=== PATIENT | male | born 1960 | race Caucasian/White ===

== ENCOUNTER 2017-02-02 13:04 | Observation (INO) ==
[2017-02-02] MEDS ORDERED: DIPHTHERIA/TETANUS ADULT IM ONE (13:27)
[2017-02-02 13:46] LABS: MANUAL DIFF NEEDED? NO
[2017-02-02 13:53] LABS: BASO% 1.2 % (0.0-0.8); EOS# 0.45 X1000 (0.0-0.7); EOS% 4.5 % (0.0-10.0); HEMATOCRIT 42.7 % (42.0-52.0); HEMOGLOBIN 15.1 g/dL (14.0-18.0); IMM GRAN# 0.03 X1000 (0.0-0.04); IMM GRAN% 0.3 % (0.0-0.5); LYMPH# 3.15 X1000 (1.2-3.4); LYMPH% 31.2 % (20.5-51.1); MCH 31.1 PG (27-31); MCHC 35.4 g/dL (33-37); MCV 87.9 FL (81-99); MONO# 0.79 X1000 (0.11-0.59); MONO% 7.8 % (1.7-9.3); MPV 9.8 FL (7.4-10.4); PLT 233 X1000 (130-400); RBC 4.86 XMIL (4.7-6.1)
[2017-02-02 14:20] LABS: AGAP 12; ALBUMIN 4.7 g/dL (3.5-5.0); ALKALINE PHOSPHATASE 82 U/L (32-122); BUN 17 mg/dL (8-22); CALCIUM 9.5 mg/dL (8.8-10.2); CHLORIDE 105 mmol/L (98-107); CK PROFILE 129 U/L (24-204); COSMO 281; GOT 15 U/L (10-34); GPT 18 U/L (10-44); POTASSIUM 3.5 mmol/L (3.5-5.1); SODIUM 140 mmol/L (136-145); TCO2 24 mmol/L (25-35); TOTAL PROTEIN 7.9 g/dL (6.3-8.3)
[2017-02-02 14:21] LABS: INR 0.87 (0.86-1.15); PROTIME 12.5 Seconds (12.1-15.5)
[2017-02-02 14:22] LABS: PTT PL 33.8 Seconds (22.6-43.9)
[2017-02-02] MEDS ORDERED: XYLOCAINE 1%/EPI 1:100,000 INJ ONE (14:30)
[2017-02-02] MEDS ORDERED: XYLOCAINE-MPF 1%/EPI 1:200,000 ONE (14:36)
[2017-02-02 14:39] LABS: URINE CULTURE PL NEEDED? NO
[2017-02-02 14:50] LABS: UR AMPHETAMINES QUAL NONE DETECTED (NONE DETECT); UR BARBITUATES QUAL NONE DETECTED (NONE DETECT); UR BENZODIAZEPIN QUAL NONE DETECTED (NONE DETECT); UR CANNABINOIDS QUAL NONE DETECTED (NONE DETECT); UR COCAINE QUAL NONE DETECTED (NONE DETECT); UR MDMA QUAL NONE DETECTED (NONE DETECT); UR METHADONE QUAL NONE DETECTED (NONE DETECT); UR METHAMPHETAMINE QUAL NONE DETECTED (NONE DETECT); UR OPIATES QUAL NONE DETECTED (NONE DETECT); UR OXYCODONE QUAL NONE DETECTED (NONE DETECT); UR PCP QUAL NONE DETECTED (NONE DETECT); UR TCA QUAL NONE DETECTED (NONE DETECT)
[2017-02-02 14:55] LABS: BILIRUBIN URINE NEGATIVE (NEGATIVE); BLOOD URINE NEGATIVE (NEGATIVE); CLARITY CLEAR (CLEAR); COLOR YELLOW; GLUCOSE URINE NEGATIVE (NEGATIVE); LEUKOCYTES URINE NEGATIVE (NEGATIVE); NITRITE URINE NEGATIVE (NEGATIVE); PH URINE 6.5; PROTEIN URINE NEGATIVE (NEGATIVE); UROBILINOGEN URINE NORMAL
[2017-02-02 14:59] LABS: URINE CAST NONE SEEN /LPF; URINE CRYSTAL NONE SEEN /HPF; URINE EPITHELIAL CELLS <10 /HPF (<10); URINE RBC <10 /HPF (<10); URINE SOURCE CLEAN CATCH; URINE WBC <10 /HPF (<10)
[2017-02-02] MEDS ORDERED: ZOFRAN IV PRN (16:21)
[2017-02-02] MEDS ORDERED: TYLENOL PO PRN (16:21)
[2017-02-02] MEDS: NICODERM PATCH TD SCH (18:09)
[2017-02-03 05:54] VITALS: BP 130/69
[2017-02-03] MEDS: NICODERM PATCH TD SCH (09:04)
[2017-02-03] MEDS ORDERED: MOTRIN PO PRN (09:48)
[2017-02-03] MEDS ORDERED: KEFLEX PO SCH (10:00)
== END 2017-02-03 11:33 | disposition home or self-care (01) ==
LOC: P.MEDSURG 13:04 → P.ED 13:04
PROVIDERS: ADMIT Internal Medicine; ATTEND Internal Medicine